=== PATIENT | female | born 1985 | race Caucasian/White ===

== ENCOUNTER 2020-11-04 13:18 | Emergency (ER) | payer MEDICAID ==
[~2020-11-04] VITALS: Ht 157.5 cm; Wt 108.2 kg
[~2020-11-04 13:18] MED LIST: IBUP-1222 PO; MULT-6 PO; None per pt; OXYC1TAB14 PO; PREN1TAB60
--- NOTE | 2020-11-04 13:50 | NUR ---
Pt had witness trip and fall down 3-4 stairs yesterday mom says shes not sure if she tripped or passed out, pt reports not being sure either. Mom says she then had jerking movements and turned white. Pt is a/ox4 now, c/o feeling "foggy" and nauseated.
[2020-11-04] MEDS ORDERED: SODIUM CHLORIDE FLUSH 10ML SYR IVF ONE (14:00)
[2020-11-04] MEDS ORDERED: SODIUM CHLORIDE 0.9% 1,000ML IVBOLUS ONE (14:00)
[2020-11-04] MEDS ORDERED: ONDANSETRON 2MG/ML, 2ML ONE (14:26)
[2020-11-04] MEDS ORDERED: MORPHINE SULFATE 4 MG/ML, 1ML ONE (14:27)
[2020-11-04] MEDS ORDERED: ONDANSETRON 2MG/ML, 2ML IVPush ONE (14:30)
[2020-11-04] MEDS ORDERED: MORPHINE SULFATE 4 MG/ML, 1ML IVPush PRN (14:30)
[2020-11-04 14:47] LABS: BASOPHILS % (AUTO) 1 % (0-1); EOSINOPHILS % (AUTO) 4 % (1-7); LYMPHOCYTES % (AUTO) 31 % (22-44); MEAN CORPUSCULAR HEMOGLOBIN 31.3 pg (27.0-34.8); MEAN CORPUSCULAR HGB CONC 34.5 g/dL (32.4-35.8); MEAN PLATELET VOLUME 9.6 fL (7.4-10.4); MONOCYTES % (AUTO) 7 % (2-9); NEUTROPHILS % (AUTO) 58 % (42-75); PLATELET COUNT 277 x10^3/uL (130-400); RED BLOOD COUNT 4.58 x10^6/uL (3.82-5.3); RED CELL DISTRIBUTION WIDTH 13.3 % (9.6-15.2)
[2020-11-04 14:49] LABS: ALANINE AMINOTRANSFERASE 40 U/L (12-78); ALBUMIN 3.4 g/dL (3.4-5.0); ANION GAP 5 mmol/L (5-15); CALCIUM 9.2 mg/dL (8.5-10.1); CHLORIDE 109 mmol/L (98-107); CREATININE 0.84 mg/dL (0.55-1.02)
[2020-11-04 14:53] LABS: ALKALINE PHOSPHATASE 49 U/L (45-117); BILIRUBIN,TOTAL 0.3 mg/dL (0.2-1.0); TOTAL PROTEIN 7.1 g/dL (6.4-8.2)
[2020-11-04 15:51] LABS: MICROSCOPIC AUTO
[2020-11-04 16:12] VITALS: BP 145/88
[2020-11-04 16:24] LABS: AMPHETAMINE SCREEN, URINE Negative (Negative); BARBITURATE SCREEN, URINE Negative (Negative); BENZODIAZEPINE SCREEN, URINE Negative (Negative); CANNABINOID SCREEN, URINE Negative (Negative); COCAINE SCREEN, URINE Negative (Negative); METHADONE SCREEN, URINE Negative (Negative); OPIATE SCREEN, URINE Positive (Negative)
== END 2020-11-04 17:12 | disposition home or self-care (01) ==
LOC: ED 15:23
DX: S06.0X0A Concussion without loss of consciousness, initial encounter (principal); S93.402A Sprain of unspecified ligament of left ankle, initial encounter; N39.0 Urinary tract infection, site not specified; R55 Syncope and collapse; R11.2 Nausea with vomiting, unspecified; W10.9XXA Fall (on) (from) unspecified stairs and steps, initial encounter; Y93.89 Activity, other specified; Y92.89 Other specified places as the place of occurrence of the external cause; Y99.8 Other external cause status
CPT/HCPCS: 36415; 70450; 70486; 73610; 80053; 80307; 81001; 84703; 85025; 87086; 93005; 96361; 96374; 96375; 99285; J2270; J2405; J7030